=== PATIENT | female | born 1975 | race Hispanic/Latino ===

== ENCOUNTER 2016-12-03 16:54 | Emergency (ER) | payer OTHER, MEDICAID ==
[2016-12-03] MEDS ORDERED: Sodium Chloride 0.9% 1,000 ML IV ONE (17:54)
[2016-12-03 18:17] LABS: RBC URINE 2 /hpf (0-3); URINE BACTERIA RARE (<OCC); URINE BILIRUBIN NEGATIVE (NEGATIVE); URINE BLOOD TRACE (NEGATIVE); URINE COLOR Straw (YELLOW); URINE GLUCOSE (UA) NORMAL (Normal); URINE KETONE NEGATIVE (NEGATIVE); URINE LEUKOCYTE ESTERASE NEG Leu/uL (Negative); URINE PROTEIN NEGATIVE (NEGATIVE); URINE UROBILINOGEN NORMAL mg/dL (0.2-1.0); WBC URINE < 1 /hpf (0-5)
[2016-12-03] MEDS ORDERED: Iohexol 240 (50 ml) PO ONE (18:43)
[2016-12-03] MEDS ORDERED: Sodium Chloride 0.9% 1,000 ML ONE (18:48)
[2016-12-03] MEDS ORDERED: Iohexol 240 (50 ml) ONE (18:50)
--- NOTE | 2016-12-03 18:53 | C.PDOC ---
History Of Present Illness 41 y/o female presents to the ED complaining of vomiting x 2 days. She also reports 3-4 episodes of non-bloody diarrhea. Patient admits to some LLQ abdominal pain but denies dysuria, hematuria, vaginal bleeding, vaginal discharge, fevers, or other complaints. She also reports left oophorectomy and mass removal in June of 2016. Chief Complaint (Nursing): GI Problem History Per: Patient History/Exam Limitations: no limitations Onset/Duration Of Symptoms: Days (2), Persistent Current Symptoms Are (Timing): Still Present Recent travel outside of the [place]: No Past Medical History Reviewed: Historical Data, Nursing Documentation, Vital Signs Vital Signs: Last Vital Signs Temp 98.0 F 12/03/16 17:00 Pulse 94 H 12/03/16 17:00 Resp 20 12/03/16 17:00 BP 114/71 12/03/16 17:00 Pulse Ox 99 12/03/16 18:54 - Medical History PMH: Anemia Other Surgeries: left oophorectomy and mass removal Family History: States: Unknown Family Hx - Social History Hx Tobacco Use: Yes (heavy smoker) Hx Alcohol Use: Yes Hx Substance Use: Yes - Immunization History Hx Tetanus Toxoid Vaccination: Yes Hx Influenza Vaccination: Yes Hx Pneumococcal Vaccination: Yes Review Of Systems Except As Marked, All Systems Reviewed And Found Negative. Constitutional: Negative for: Fever Gastrointestinal: Positive for: Vomiting, Abdominal Pain (LLQ), Diarrhea (non- bloody) Genitourinary: Negative for: Dysuria, Hematuria, Vaginal Discharge, Vaginal Bleeding Physical Exam - Physical Exam Appears: Non-toxic, No Acute Distress Skin: Normal Color, Warm, Dry Head: Atraumatic, Normacephalic Eye(s): bilateral: Normal Inspection, PERRL Oral Mucosa: Moist Neck: Normal ROM, Supple Chest: Symmetrical Cardiovascular: Rhythm Regular Respiratory: Normal Breath Sounds, No Rales, No Rhonchi, No Wheezing Gastrointestinal/Abdominal: Bowel Sounds, Soft, Tenderness (LLQ), No Guarding, No Rebound Back: Normal Inspection, No CVA Tenderness Extremity: Normal ROM, No Swelling Neurological/Psych: Oriented x3, Normal Speech, Normal Cognition ED Course And Treatment - Laboratory Results Result Diagrams: 12/03/16 18:52 O2 Sat by Pulse Oximetry: 99 (ra) Pulse Ox Interpretation: Normal Progress Note: CT Abd/Pelvis, Blood Work, Urinalysis, Urine HCG, Zofran IVP, Pepcid IVP, IV Fluids. Disposition - Disposition Disposition Time: 19:00 Condition: UNKNOWN - Clinical Impression Clinical Impression: Abdominal pain - Scribe Statement The provider has reviewed the documentation as recorded by the Scribe (Anyi Kinney) Provider Attestation: All medical record entries made by the Scribe were at my direction and personally dictated by me. I have reviewed the chart and agree that the record accurately reflects my personal performance of the history, physical exam, medical decision making, and the department course for this patient. I have also personally directed, reviewed, and agree with the discharge instructions and disposition.
[2016-12-03 18:58] LABS: BASO % 0.8 % (0.0-2.0); EOS # 0.2 K/uL (0.0-0.7); EOS % 2.7 % (0.0-4.0); HEMATOCRIT 38.5 % (34.0-47.0); LYMPH # 1.5 K/uL (1.0-4.3); LYMPH % 26.1 % (20.0-40.0); MEAN CELL VOLUME 97.4 fL (81.0-99.0); MEAN CORPUSCULAR HEMOGLOBIN 33.3 pg (27.0-31.0); MEAN CORPUSCULAR HGB CONC 34.2 g/dL (33.0-37.0); MEAN PLATELET VOLUME 8.7 fL (7.2-11.7); MONO # 0.6 K/uL (0.0-0.8); MONO % 10.6 % (0.0-10.0); RED CELL DISTRIBUTION WIDTH 12.3 % (11.5-14.5); WHITE BLOOD COUNT 5.7 K/uL (4.8-10.8)
[2016-12-03 19:06] LABS: CHLORIDE 106 mmol/L (98-107)
[2016-12-03 19:07] LABS: POTASSIUM 4.2 mmol/L (3.6-5.2); SODIUM 138 mmol/L (132-148)
[2016-12-03 19:09] LABS: ALB/GLOB RATIO 1.4 (1.0-2.1); ALKALINE PHOSPHATASE 42 U/L (38-126); AST/SGOT 19 U/L (14-36); BILIRUBIN,TOTAL 0.2 mg/dL (0.2-1.3); BLOOD UREA NITROGEN 12 mg/dL (7-17); CARBON DIOXIDE 21 mmol/L (22-30); GFR AFRICAN-AMERICAN > 60; TOTAL PROTEIN 7.1 g/dL (6.3-8.3)
[2016-12-03 19:10] LABS: ALT/SGPT 15 U/L (9-52); CALCIUM 8.2 mg/dl (8.6-10.4); GLUCOSE,RANDOM 81 mg/dL (65-105)
[2016-12-03] MEDS ORDERED: Iodixanol 320 MG/ML 100 ML BOTTLE IV ONE (19:33)
[2016-12-03 21:00] VITALS: RESP 18; TEMP 97.9
[2016-12-03 23:12] VITALS: BP 101/68; PULSE 72; O2SAT 99
--- NOTE | 2016-12-04 07:48 | CT ---
PROCEDURE: CT abdomen and pelvis with intravenous contrast HISTORY: Left lower quadrant abdominal tenderness COMPARISON: CT abdomen and pelvis dated 05/16/2016 TECHNIQUE: Multiple contiguous axial images were performed through the abdomen and pelvis with the use intravenous contrast. Subsequently, sagittal and coronal reformatted images were obtained. Contrast Dose: 100 cc of Visipaque 320 intravenous contrast was administered. Radiation dose: Total exam DLP = 306 mGy-cm. This CT exam was performed using one or more of the following dose reduction techniques: Automated exposure control, adjustment of the mA and/or kV according to patient size, and/or use of iterative reconstruction technique. FINDINGS: LOWER THORAX: Left breast implant. LIVER: Punctate hypodensity in the periphery of the right hepatic lobe, too small to adequately characterize. GALLBLADDER AND BILE DUCTS: Contracted gallbladder. PANCREAS: Unremarkable. No gross lesion or ductal dilatation. SPLEEN: Unremarkable. ADRENALS: Unremarkable. No mass. KIDNEYS AND URETERS: Unremarkable. No hydronephrosis. No solid mass. VASCULATURE: Unremarkable. No aortic aneurysm. BOWEL: Underdistention and or mild thickening of the distal sigmoid colon and rectum. APPENDIX: Not well visualized. PERITONEUM: Unremarkable. No free fluid. No free air. LYMPH NODES: Unremarkable. No enlarged lymph nodes. BLADDER: Unremarkable. REPRODUCTIVE: Recently ruptured right ovarian cyst or follicle. BONES: No acute fracture. OTHER FINDINGS: Increased attenuation in the subcutaneous fat of the buttocks, possibly representing injection sites. IMPRESSION: Recently ruptured right ovarian cyst or follicle. Underdistention and or mild thickening of the distal sigmoid colon and rectum. Additional findings as above. These findings were preliminarily reported at 8:29 p.m. on 12/03/[address] Doc Richey from [facility].
== END 2016-12-03 23:00 | disposition home or self-care (01) ==
LOC: C.ER 16:54
DX: R10.32 Left lower quadrant pain (principal)
CPT/HCPCS: 74177; 80053; 81001; 83690; 84703; 85025; 96374; 96375; 99285; J2405; J7040; Q9966; Q9967

== ENCOUNTER 2017-08-28 03:03 | Emergency (ER) | payer MEDICAID, OTHER ==
[2017-08-28] MEDS ORDERED: Naproxen 550 mg Tab PO STA (03:35)
[2017-08-28] MEDS ORDERED: Lidocaine 5% Patch TD STA (03:36)
[2017-08-28] MEDS ORDERED: Lidocaine 5% Patch TD ONE (03:44)
[2017-08-28] MEDS ORDERED: Naproxen 550 mg Tab PO ONE (03:44)
--- NOTE | 2017-08-28 03:54 | C.PDOC ---
History Of Present Illness 42 year old female presents to the ED c/o lower back that started on Friday at midnight. Patient reports she was on a ladder and while trying to get off she slipped, fell and hit her back. Patient reports that at the time she felt fine and continued painting but today she noticed some swelling and pain in the area which prompted her to come to ER. Patient states she did not take any mediation at home for her pain. Denies weakness, numbness, LOC, headache, head injury, blurry vision, urinary or bowel incontinence, saddle anesthesia. Time Seen by Provider: 08/28/17 03:10 Chief Complaint (Nursing): Back Pain History Per: Patient History/Exam Limitations: no limitations Onset/Duration Of Symptoms: Days Current Symptoms Are (Timing): Still Present Quality Of Discomfort: "Pain" Severity: Mild Previous Symptoms: Back Pain Associated Symptoms: None Exacerbating Factor(s): Movement Recent travel outside of the [place]: No Additional History Per: Patient Past Medical History Reviewed: Historical Data, Nursing Documentation, Vital Signs Vital Signs: Last Vital Signs Temp 98 F 08/28/17 03:13 Pulse 86 08/28/17 03:13 Resp 18 08/28/17 03:13 BP 108/43 L 08/28/17 03:13 Pulse Ox 98 08/28/17 05:44 - Medical History PMH: Anemia Surgical History: No Surg Hx Family History: States: Unknown Family Hx - Social History Hx Tobacco Use: Yes (heavy smoker) Hx Alcohol Use: Yes Hx Substance Use: Yes - Immunization History Hx Tetanus Toxoid Vaccination: Yes Hx Influenza Vaccination: Yes Hx Pneumococcal Vaccination: Yes Review Of Systems Constitutional: Negative for: Fever, Chills Cardiovascular: Negative for: Chest Pain, Palpitations Respiratory: Negative for: Cough, Shortness of Breath Gastrointestinal: Negative for: Nausea, Vomiting, Abdominal Pain Musculoskeletal: Positive for: Back Pain Skin: Positive for: Bruising. Negative for: Rash Neurological: Negative for: Weakness, Numbness Physical Exam - Physical Exam Appears: Non-toxic, No Acute Distress Skin: Normal Color, Warm, Dry Head: Atraumatic, Normacephalic Eye(s): bilateral: Normal Inspection, EOMI Nose: No Discharge, No Deformity Oral Mucosa: Moist Neck: Normal ROM, Supple Chest: Symmetrical Cardiovascular: Rhythm Regular Respiratory: Normal Breath Sounds, No Rales, No Rhonchi, No Wheezing Gastrointestinal/Abdominal: Soft, No Tenderness, No Guarding, No Rebound Back: No CVA Tenderness, Other (Midline tendernes, swelling ) Extremity: Normal ROM, No Pedal Edema, No Calf Tenderness, No Deformity, No Swelling Neurological/Psych: Oriented x3, Normal Speech, Normal Cognition, Normal Motor, Normal Sensation Gait: Steady ED Course And Treatment O2 Sat by Pulse Oximetry: 98 (On RA) Pulse Ox Interpretation: Normal - Other Rad LS Spine X-Ray X-Ray: Viewed By Me, Read By Radiologist Interpretation: No fractures, dislocations shown - CT Scan/US CT LS Spine Other Rad Studies (CT/US): Read By Radiologist, Radiology Report Reviewed CT/US Interpretation: EXAM: CT Lumbar Spine Without Intravenous Contrast. CLINICAL HISTORY: 42 years old, female; Pain; Low back pain; Patient HX: 4- 17; Additional info: Trauma. TECHNIQUE: Axial computed tomography images of the lumbar spine without intravenous contrast. All CT scans. at this facility use one or more dose reduction techniques, viz.: automated exposure control; ma/ kV. adjustment per patient size (including targeted exams where dose is matched to indication; i.e. head);. or iterative reconstruction technique. Coronal and sagittal reformatted images were created and reviewed. COMPARISON: CT abdomen/pelvis 05/16/2016. FINDINGS: Vertebrae: No acute fracture. Discs/ spinal canal/neural foramina: No significant spinal canal stenosis. Soft tissues: Soft tissue/stranding within posterior subcutaneous tissues, stable. IMPRESSION: 1. No fracture. 2. If back pain persists, consider MRI for further evaluation. 3. Incidental/non-acute findings are described above. Progress Note: Plan: -LS spine X-Ray. -Anaprox 550 mg PO. -Lidoderm 1 ea TD. -LS Spine CT. On reassessment, patient resting comfortably, no longer having back pain, no fever, no bony tenderness, no numbness, no weakness, no abdominal pain. Patient is ambulatory in the emergency department with no discomfort. Patient was instructed to follow up with physician/clinic in 1-2 days for further evaluation or return to ED if symptoms persist or worsen. Disposition - Disposition Disposition: HOME/ ROUTINE Disposition Time: 05:43 Condition: STABLE Additional Instructions: Follow up with your PMD in1 -2 days. Return to ER if symptoms persist or worsen. Prescriptions: Naproxen [Naprosyn] 1 tab PO BID PRN #20 tab PRN Reason: Pain Instructions: Back Pain (ED) Forms: [facility] (Kazakh) - Clinical Impression Clinical Impression: Back contusion - PA / ANALYTICAL CONSULTANT / Resident Statement MD/DO has reviewed & agrees with the documentation as recorded. - Scribe Statement The provider has reviewed the documentation as recorded by the Scribe Roly Bee All medical record entries made by the Scribe were at my direction and personally dictated by me. I have reviewed the chart and agree that the record accurately reflects my personal performance of the history, physical exam, medical decision making, and the department course for this patient. I have also personally directed, reviewed, and agree with the discharge instructions and disposition.
--- NOTE | 2017-08-28 05:41 | CT ---
EXAM: CT Lumbar Spine Without Intravenous Contrast CLINICAL HISTORY: 42 years old, female; Pain; Low back pain; Patient HX: 4-25-17; Additional info: Trauma TECHNIQUE: Axial computed tomography images of the lumbar spine without intravenous contrast. All CT scans at this facility use one or more dose reduction techniques, viz.: automated exposure control; ma/kV adjustment per patient size (including targeted exams where dose is matched to indication; i.e. head); or iterative reconstruction technique. Coronal and sagittal reformatted images were created and reviewed. COMPARISON: CT abdomen/pelvis 05/16/2016 FINDINGS: Vertebrae: No acute fracture. Discs/spinal canal/neural foramina: No significant spinal canal stenosis. Soft tissues: Soft tissue/stranding within posterior subcutaneous tissues, stable. IMPRESSION: 1. No fracture. 2. If back pain persists, consider MRI for further evaluation. 3. Incidental/non-acute findings are described above.
[2017-08-28 05:58] VITALS: BP 111/68; PULSE 72; RESP 20; TEMP 97.6; O2SAT 97
--- NOTE | 2017-08-28 09:37 | RAD ---
PROCEDURE: Radiographs of the Lumbar Spine. HISTORY: trauma COMPARISON: No prior. FINDINGS: BONES: Normal alignment. No listhesis. No fracture. DISC SPACES: Unremarkable. OTHER FINDINGS: Stool retention. IMPRESSION: No fracture appreciated Stool retention.
== END 2017-08-28 05:57 | disposition home or self-care (01) ==
LOC: C.ER 03:03
DX: S30.0XXA Contusion of lower back and pelvis, initial encounter (principal); W11.XXXA Fall on and from ladder, initial encounter; Y92.9 Unspecified place or not applicable

== ENCOUNTER 2018-09-15 19:12 | Emergency (ER) | payer MEDICAID ==
[2018-09-15 19:27] VITALS: BP 92/60
[2018-09-15] MEDS ORDERED: DiphenhydrAMINE 50 mg/ml Inj IVP STA (19:45)
[2018-09-15] MEDS ORDERED: Sodium Chloride 0.9% 1,000 ML ONE (19:58)
[2018-09-15] MEDS ORDERED: DiphenhydrAMINE 50 mg/ml Inj ONE (19:58)
--- NOTE | 2018-09-15 19:59 | C.PDOC ---
History Of Present Illness 43 year old female, whose past medical history includes concussion sustained one year ago, presents to the ED for evaluation of ongoing intermittent headache, nausea and dizziness since the incident. Patient states she has not followed up with a neurologist for her symptoms. She denies vomiting, extremity numbness/weakness, or any recent injuries. <José Miguel Spivey M - Last Filed: 09/15/18 20:54> History Per: Patient History/Exam Limitations: no limitations Onset/Duration Of Symptoms: Intermittent Episodes (one year ), Persistent Current Symptoms Are (Timing): Still Present Quality: Aching Associated Symptoms: Nausea. denies: Extremity Weakness Additional History Per: Patient <PatricJosé Miguel Cardoso - Last Filed: 09/15/18 20:54> <Rosie Hilliard - Last Filed: 09/18/18 07:56> Time Seen by Provider: 09/15/18 19:37 Chief Complaint (Nursing): Headache Past Medical History Reviewed: Historical Data, Nursing Documentation, Vital Signs Vital Signs: Last Vital Signs Temp 97.6 F 09/15/18 19:22 Pulse 81 09/15/18 19:22 Resp 20 09/15/18 19:22 BP 92/60 L 09/15/18 19:22 Pulse Ox 98 09/15/18 19:22 - Medical History PMH: Anemia, Anxiety Surgical History: No Surg Hx Family History: States: Unknown Family Hx - Social History Hx Tobacco Use: Yes (heavy smoker) Hx Alcohol Use: No Hx Substance Use: No - Immunization History Hx Tetanus Toxoid Vaccination: Yes Hx Influenza Vaccination: Yes Hx Pneumococcal Vaccination: Yes <José Miguel Spivey M - Last Filed: 09/15/18 20:54> Vital Signs: Last Vital Signs Temp 97.9 F 09/15/18 21:27 Pulse 62 09/15/18 21:27 Resp 16 09/15/18 21:27 BP 92/60 L 09/15/18 19:22 Pulse Ox 99 09/15/18 21:27 <Rosie Hilliard - Last Filed: 09/18/18 07:56> Review Of Systems Gastrointestinal: Positive for: Nausea. Negative for: Vomiting Neurological: Positive for: Headache, Dizziness. Negative for: Weakness, Numbness <José Miguel Spivey - Last Filed: 09/15/18 20:54> Physical Exam - Physical Exam Appears: Non-toxic, No Acute Distress Skin: Normal Color, Warm, Dry Head: Atraumatic, Normacephalic, No Tenderness, No Swelling Eye(s): bilateral: Normal Inspection, PERRL, EOMI Oral Mucosa: Moist Neck: Normal ROM, Supple Chest: Symmetrical, No Deformity, No Tenderness Cardiovascular: Rhythm Regular, No Murmur Respiratory: Normal Breath Sounds, No Rales, No Rhonchi, No Wheezing Extremity: Normal ROM, Capillary Refill (less than 2 seconds ) Neurological/Psych: Oriented x3, Normal Speech, Normal Cognition Gait: Steady <José Miguel Spivey M - Last Filed: 09/15/18 20:54> ED Course And Treatment - Laboratory Results Result Diagrams: 09/15/18 20:13 09/15/18 20:13 O2 Sat by Pulse Oximetry: 98 (on RA) Pulse Ox Interpretation: Normal <José Miguel Spivey M - Last Filed: 09/15/18 20:54> - Laboratory Results Result Diagrams: 09/15/18 20:13 09/15/18 20:13 Lab Results: Total Bilirubin 0.3 mg/dL (0.2-1.3) 09/15/18 20:13 AST 19 U/L (14-36) 09/15/18 20:13 ALT 14 U/L (9-52) 09/15/18 20:13 Alkaline Phosphatase 51 U/L (38-126) 09/15/18 20:13 Total Protein 7.1 g/dL (6.3-8.3) 09/15/18 20:13 Albumin 4.4 g/dL (3.5-5.0) 09/15/18 20:13 Globulin 2.7 gm/dL (2.2-3.9) 09/15/18 20:13 Albumin/Globulin Ratio 1.6 (1.0-2.1) 09/15/18 20:13 <Rosie Hilliard - Last Filed: 09/18/18 07:56> Medical Decision Making Medical Decision Making: Assessment: headache, nausea Plan: * bloodwork * CT Head * Benadryl IVP * Reglan IVP * IV Fluids * reassess and disposition Progress: bloodwork, CT Head ordered and reviewed. Benadryl IVP, Reglan IVP, and IV Fluids given. 2053 - patient states improvement. Will discharge home to follow up with neurology within 2 days <José Miguel Spivey - Last Filed: 09/15/18 20:54> Medical Decision Making: Patient's CT scan was placed for addendum from radiology. ADDENDUM: Nonspecific fullness seen at the level of the sella turcica on series 4, image 9 measuring up to 9 millimeters. This is nonspecific. Correlation with MRI and or pituitary MRI may be helpful for further evaluation. This addendum was placed in the PA review folder. [ Addendum Report Added by Jon Nava MD at 09/16/2018 13:42:46 ] Patient called and voice message left on cellphone about following up and having a MRI performed outpatient. <Rosie Hilliard - Last Filed: 09/18/18 07:56> Disposition - Disposition Disposition Time: 20:55 <José Miguel Spivey - Last Filed: 09/15/18 20:54> <Rosie Hilliard - Last Filed: 09/18/18 07:56> - Disposition Referrals: German Suarez MD [Staff Provider] - Disposition: HOME/ ROUTINE Condition: STABLE Additional Instructions: follow up with your doctor within 2 days call to make an appointment return to ER if symptoms worsens or progress Instructions: Tension Headache, Concussion in Adults Forms: [facility] (Korean), General Discharge Instructions - Clinical Impression Clinical Impression: Headache, Concussion - Scribe Statement The provider has reviewed the documentation as recorded by the Scribe (Delmi Benedict) Provider Attestation: All medical record entries made by the Scribe were at my direction and personally dictated by me. I have reviewed the chart and agree that the record accurately reflects my personal performance of the history, physical exam, medical decision making, and the department course for this patient. I have also personally directed, reviewed, and agree with the discharge instructions and disposition. <José Miguel Spivey - Last Filed: 09/15/18 20:54>
[2018-09-15] MEDS ORDERED: Sodium Chloride 0.9% 1,000 ML IV SCH (20:00)
[2018-09-15 20:21] LABS: BASO % 0.5 % (0.0-2.0); EOS # 0.3 K/uL (0.0-0.7); EOS % 4.7 % (0.0-4.0); HEMOGLOBIN 13.2 g/dL (11.0-16.0); LYMPH # 2.1 K/uL (1.0-4.3); LYMPH % 33.7 % (20.0-40.0); MEAN CELL VOLUME 98.7 fL (81.0-99.0); MEAN CORPUSCULAR HEMOGLOBIN 32.8 pg (27.0-31.0); MEAN CORPUSCULAR HGB CONC 33.3 g/dL (33.0-37.0); MEAN PLATELET VOLUME 8.7 fL (7.2-11.7); MONO # 0.5 K/uL (0.0-0.8); MONO % 8.2 % (0.0-10.0); NEUT # 3.3 K/uL (1.8-7.0); NEUT % 52.9 % (50.0-75.0); RBC 4.02 Mil/uL (3.80-5.20); RED CELL DISTRIBUTION WIDTH 12.3 % (11.5-14.5); WHITE BLOOD COUNT 6.3 K/uL (4.8-10.8)
[2018-09-15 20:37] LABS: ALB/GLOB RATIO 1.6 (1.0-2.1); ALBUMIN 4.4 g/dL (3.5-5.0); ALT/SGPT 14 U/L (9-52); AST/SGOT 19 U/L (14-36); BLOOD UREA NITROGEN 13 mg/dL (7-17); CALCIUM 8.7 mg/dl (8.6-10.4); GFR NON-AFRICAN AMERICAN > 60
[2018-09-15 21:28] VITALS: PULSE 62; RESP 16; TEMP 97.9; O2SAT 99
--- NOTE | 2018-09-16 08:24 | CT ---
Date of service: 09/15/2018 PROCEDURE: CT HEAD WITHOUT CONTRAST. HISTORY: Headache COMPARISON: None available. TECHNIQUE: Axial computed tomography images were obtained through the head/brain without intravenous contrast. Radiation dose: Total exam DLP = 984.77 mGy-cm. This CT exam was performed using one or more of the following dose reduction techniques: Automated exposure control, adjustment of the mA and/or kV according to patient size, and/or use of iterative reconstruction technique. FINDINGS: HEMORRHAGE: No intracranial hemorrhage. BRAIN: No mass effect or edema. No atrophy or chronic microvascular ischemic changes. VENTRICLES: Unremarkable. No hydrocephalus. CALVARIUM: Unremarkable. PARANASAL SINUSES: Unremarkable as visualized. No significant inflammatory changes. MASTOID AIR CELLS: Unremarkable as visualized. No inflammatory changes. OTHER FINDINGS: None. IMPRESSION: No acute intracranial abnormality. If symptoms persist, consider correlation with MRI. A preliminary report was generated at 8:50 p.m. on 09/15/[address] Jack Araya from [facility].
== END 2018-09-15 21:28 | disposition home or self-care (01) ==
LOC: C.ER 19:12
DX: S06.0X0A Concussion without loss of consciousness, initial encounter (principal); X58.XXXA Exposure to other specified factors, initial encounter; R51 Headache; F17.210 Nicotine dependence, cigarettes, uncomplicated
CPT/HCPCS: 70450; 80053; 81025; 85025; 85651; 96361; 96374; 96375; 99284; J1200; J2765; J7030